=== PATIENT | female | born 1950 | race Native Hawaiian/Other Pacific Islander ===

== ENCOUNTER 2021-10-21 07:49 | Outpatient (CLI) | payer OTHER | END 2021-10-21 19:26 | disposition home or self-care (01) | LOC: CT 07:49 | PROVIDERS: ATTEND Internal Medicine | DX: Z09 Encounter for follow-up examination after completed treatment for conditions other than malignant neoplasm (principal); Z87.898 Personal history of other specified conditions; K76.89 Other specified diseases of liver; R91.8 Other nonspecific abnormal finding of lung field ==

== ENCOUNTER 2022-06-30 13:12 | Outpatient (CLI) | payer OTHER | END 2022-06-30 19:08 | disposition home or self-care (01) | LOC: CT 13:12 | PROVIDERS: ATTEND Internal Medicine | DX: K76.89 Other specified diseases of liver (principal); Z87.898 Personal history of other specified conditions; R91.8 Other nonspecific abnormal finding of lung field ==